=== PATIENT | male | born 1985 | race American Indian/Alaskan Native ===

== ENCOUNTER 2020-10-15 09:32 | Emergency (ER) | payer MEDICARE ==
[2020-10-15 09:46] VITALS: BP 126/87
[2020-10-15] MEDS ORDERED: ACETAMINOPHEN 500 MG TAB PO STA (10:55)
--- NOTE | 2020-10-15 11:00 | Emergency Department Report ---
ED General Adult HPI - General Chief complaint: Extremity Injury, Lower Stated complaint: LT LEG PAIN Time Seen by Provider: 10/15/20 10:21 Source: patient Mode of arrival: Ambulatory Limitations: No Limitations - History of Present Illness Initial comments: 35-year-old -[place] male patient presents with complaints of left lower leg pain starting yesterday. Patient states there is redness and swelling in the area. He denies any history of DVT/PE, recent long travel/surgeries, hemoptysis/cough, shortness of breath, or history of cancer. Patient rates his current pain as a 5/10 in severity and denies trying any OTC medications for symptoms. No difficulty moving the leg per patient. He denies any past medical history - Related Data Previous Rx's Medication Instructions Recorded Last Taken Type Ibuprofen [Motrin] 800 mg PO Q8HR PRN #30 tablet 04/01/16 Unknown Rx cephALEXin [Keflex] 500 mg PO BID #14 capsule 04/01/16 Unknown Rx Ibuprofen [Motrin 800 MG tab] 800 mg PO Q8HR PRN #20 tablet 10/15/20 Unknown Rx Mupirocin [Bactroban 2% OINT] 1 applic TP TID 10 Days #1 tube 10/15/20 Unknown Rx Sulfamethoxazole/Trimethoprim 1 each PO BID 7 Days #14 tablet 10/15/20 Unknown Rx [Bactrim DS TAB] Allergies Allergy/AdvReac Type Severity Reaction Status Date / Time No Known Allergies Allergy Verified 10/15/20 09:43 ED Review of Systems ROS: Stated complaint: LT LEG PAIN Other details as noted in HPI Constitutional: denies: chills, fever Musculoskeletal: other Skin: change in color Neurological: denies: numbness, paresthesias, abnormal gait Hematological/Lymphatic: denies: easy bleeding ED Past Medical Hx - Past Medical History Previous Medical History?: No - Surgical History Past Surgical History?: No - Social History Smoking Status: Never Smoker Substance Use Type: Alcohol - Medications Home Medications: Home Medications Medication Instructions Recorded Confirmed Last Taken Type Ibuprofen [Motrin] 800 mg PO Q8HR PRN #30 tablet 04/01/16 Unknown Rx cephALEXin [Keflex] 500 mg PO BID #14 capsule 04/01/16 Unknown Rx Ibuprofen [Motrin 800 MG tab] 800 mg PO Q8HR PRN #20 tablet 10/15/20 Unknown Rx Mupirocin [Bactroban 2% OINT] 1 applic TP TID 10 Days #1 tube 10/15/20 Unknown Rx Sulfamethoxazole/Trimethoprim 1 each PO BID 7 Days #14 tablet 10/15/20 Unknown Rx [Bactrim DS TAB] ED Physical Exam - General Limitations: No Limitations General appearance: alert, in no apparent distress - Head Head exam: Present: atraumatic, normocephalic - Eye Eye exam: Present: normal appearance - Respiratory Respiratory exam: Absent: respiratory distress - Cardiovascular Cardiovascular Exam: Present: regular rate, normal rhythm - Extremities Exam Extremities exam: Present: full ROM, other (2 cm round area of erythema noted to left medial calf with tenderness to palpation; surrounding varicose veins noted; normal range of motion and sensation of the leg noted; normal pedal pulse noted) - Neurological Exam Neurological exam: Present: alert, oriented X3 - Psychiatric Psychiatric exam: Present: normal affect, normal mood - Skin Skin exam: Present: warm, dry, intact. Absent: rash, cyanosis, diaphoretic, pallor, ecchymosis ED Course Vital Signs 10/15/20 10/15/20 09:45 11:49 Temperature 97.9 F Pulse Rate 70 Respiratory 18 16 Rate Blood Pressure 126/87 O2 Sat by Pulse 99 Oximetry ED Medical Decision Making - Radiology Data Radiology results: report reviewed Left lower extremity Doppler venous ultrasound INDICATION: Pain and swelling FINDINGS: The left common femoral vein, superficial femoral vein and popliteal vein have normal compressibility and phasic flow. An area swelling there is a small hypoechoic areas. No definite flow is seen on the images provided IMPRESSION: 1. No evidence for DVT. 2. Hyperechoic areas in the subcutaneous fat soft tissues. No definite flow signal images provided however findings could represent varicose veins, nonspecific. - Medical Decision Making 35-year-old -[place] male patient presents with complaints of left lower leg pain starting yesterday. Patient states there is redness and swelling in the area. He denies any history of DVT/PE, recent long travel/surgeries, hemoptysis/cough, shortness of breath, or history of cancer. Patient rates his current pain as a 5/10 in severity and denies trying any OTC medications for symptoms. No difficulty moving the leg per patient. He denies any past medical history Round area of erythema and tenderness to palpation noted on exam. Ultrasound is negative for any DVT, however shows a small hypoechoic area. Will cover for infection with Bactrim and mupirocin. Recommend follow-up with primary care doctor in 3 days. Discussed signs and symptoms that should prompt immediate return to the emergency department in detail with patient who verbalized understanding. His vitals are within normal limits, he is well-appearing, he is stable for discharge home. Critical care attestation.: If time is entered above; I have spent that time in minutes in the direct care of this critically ill patient, excluding procedure time. ED Disposition Clinical Impression: Left leg pain Disposition: DC- TO HOME OR SELFCARE Is pt being admited?: No Condition: Stable Instructions: Cellulitis, Adult Prescriptions: Sulfamethoxazole/Trimethoprim [Bactrim DS TAB] 1 each PO BID 7 Days #14 tablet Mupirocin [Bactroban 2% OINT] 1 applic TP TID 10 Days #1 tube Ibuprofen [Motrin 800 MG tab] 800 mg PO Q8HR PRN #20 tablet PRN Reason: Pain Referrals: PRIMARY CARE, [Primary Care Provider] - 3-5 Days [facility] [Provider Group] - 3-5 Days Forms: Work/School Release Form(ED)
--- NOTE | 2020-10-15 11:56 | Vascular Lab Report ---
Left lower extremity Doppler venous ultrasound INDICATION: Pain and swelling FINDINGS: The left common femoral vein, superficial femoral vein and popliteal vein have normal compr essibility and phasic flow. An area swelling there is a small hypoechoic areas. No definite flow is s een on the images provided IMPRESSION: 1. No evidence for DVT. 2. Hyperechoic areas in the subcutaneous fat soft tissues. No definite flow signal images provided ho wever findings could represent varicose veins, nonspecific. Signer Name: Wojciech Smith MD Signed: 10/15/2020 11:51 AM Workstation Name: [id number]
[2020-10-15] MEDS ORDERED: IBUPROFEN 800 MG TAB PO STA (12:00)
== END 2020-10-15 12:26 | disposition home or self-care (01) ==
LOC: ED 09:32
DX: M79.605 Pain in left leg (principal); M79.89 Other specified soft tissue disorders; Z79.1 Long term (current) use of non-steroidal anti-inflammatories (NSAID); Z79.899 Other long term (current) drug therapy

== ENCOUNTER 2020-11-25 08:06 | Emergency (ER) | payer MEDICARE ==
[2020-11-25 08:12] VITALS: BP 128/68
--- NOTE | 2020-11-25 09:18 | Emergency Department Report ---
ED Eye Problem HPI - General Chief complaint: Eye Problems Stated complaint: RIGHT EYE PAIN Time Seen by Provider: 11/25/20 09:12 Source: patient Mode of arrival: Ambulatory Limitations: No Limitations - History of Present Illness Initial comments: 35-year-old -Filipino male presents to the emergency room complaining of right discomfort and redness. Patient states that the eye itches and he wakes up in the morning with Nadira crusty eyelashes and discharge from the eye. Patient denies any blurred vision no change of vision no head injury no eye injury no concerns for foreign body in the eye. Denies any photophobia no decrease in vision. chief complaint: eye redness Onset/Timin -: days(s) Location: right eye If Injury: none Eye Symptoms: redness, pain (Discomfort), discharge Severity scale (0 -10): 7 Consistency: constant Context: recent uri (Seasonal allergies) Associated Symptoms: none Treatments Prior to Arrival: OTC eye drops - Related Data Patient Tetanus UTD: Yes Previous Rx's Medication Instructions Recorded Last Taken Type Ibuprofen [Motrin] 800 mg PO Q8HR PRN #30 tablet 04/01/16 Unknown Rx cephALEXin [Keflex] 500 mg PO BID #14 capsule 04/01/16 Unknown Rx Ibuprofen [Motrin 800 MG tab] 800 mg PO Q8HR PRN #20 tablet 10/15/20 Unknown Rx Mupirocin [Bactroban 2% OINT] 1 applic TP TID 10 Days #1 tube 10/15/20 Unknown Rx Sulfamethoxazole/Trimethoprim 1 each PO BID 7 Days #14 tablet 10/15/20 Unknown Rx [Bactrim DS TAB] Erythromycin [Erythromycin Ophth 1 strip OD QID 10 Days #1 tube 11/25/20 Unknown Rx Oint] Ketotifen Fumarate [Eye Itch 1 drop OD QDAY #1 bottle 11/25/20 Unknown Rx Relief] Allergies Allergy/AdvReac Type Severity Reaction Status Date / Time No Known Allergies Allergy Verified 11/25/20 08:09 ED Review of Systems ROS: Stated complaint: RIGHT EYE PAIN Other details as noted in HPI Comment: All other systems reviewed and negative ED Past Medical Hx - Past Medical History Previous Medical History?: No - Surgical History Past Surgical History?: No - Social History Smoking Status: Never Smoker Substance Use Type: Alcohol - Medications Home Medications: Home Medications Medication Instructions Recorded Confirmed Last Taken Type Ibuprofen [Motrin] 800 mg PO Q8HR PRN #30 tablet 04/01/16 Unknown Rx cephALEXin [Keflex] 500 mg PO BID #14 capsule 04/01/16 Unknown Rx Ibuprofen [Motrin 800 MG tab] 800 mg PO Q8HR PRN #20 tablet 10/15/20 Unknown Rx Mupirocin [Bactroban 2% OINT] 1 applic TP TID 10 Days #1 tube 10/15/20 Unknown Rx Sulfamethoxazole/Trimethoprim 1 each PO BID 7 Days #14 tablet 10/15/20 Unknown Rx [Bactrim DS TAB] Erythromycin [Erythromycin Ophth 1 strip OD QID 10 Days #1 tube 11/25/20 Unknown Rx Oint] Ketotifen Fumarate [Eye Itch 1 drop OD QDAY #1 bottle 11/25/20 Unknown Rx Relief] ED Physical Exam - General Limitations: No Limitations General appearance: alert, in no apparent distress - Head Head exam: Present: atraumatic, normocephalic - Eye Eye exam: Present: PERRL, EOMI, conjunctival injection. Absent: scleral icterus, nystagmus, periorbital swelling, periorbital tenderness - ENT ENT exam: Present: mucous membranes moist, other (Playing on his phone) - Neck Neck exam: Present: normal inspection, full ROM - Respiratory Respiratory exam: Absent: accessory muscle use - Cardiovascular Cardiovascular Exam: Present: regular rate - Extremities Exam Extremities exam: Present: normal inspection, full ROM - Back Exam Back exam: Present: normal inspection, full ROM - Neurological Exam Neurological exam: Present: alert, oriented X3, normal gait - Psychiatric Psychiatric exam: Present: normal affect, normal mood - Skin Skin exam: Present: warm, dry, intact, normal color. Absent: rash ED Course Vital Signs 11/25/20 08:10 Temperature 98.3 F Pulse Rate 69 Respiratory 18 Rate Blood Pressure 128/68 O2 Sat by Pulse 99 Oximetry ED Medical Decision Making - Medical Decision Making 35-year-old -Filipino male presents to the emergency room complaining of right discomfort and redness. Patient states that the eye itches and he wakes up in the morning with Nadira crusty eyelashes and discharge from the eye. Patient denies any blurred vision no change of vision no head injury no eye injury no concerns for foreign body in the eye. Denies any photophobia no decrease in vision. Patient be placed on erythromycin and Zaditor drops. Discussed the patient is most likely from allergies considering he has matted crusty eyelashes in the morning and crusty yellow discharge. Patient is also referred to a primary care provider. Critical care attestation.: If time is entered above; I have spent that time in minutes in the direct care of this critically ill patient, excluding procedure time. ED Disposition Clinical Impression: Conjunctivitis, right eye Qualifiers: Conjunctivitis type: acute Acute conjunctivitis type: unspecified Qualified Code(s): H10.31 - Unspecified acute conjunctivitis, right eye Disposition: TO HOME OR SELFCARE Is pt being admited?: No Does the pt Need Aspirin: No Condition: Stable Instructions: How to Use Eye Drops and Eye Ointments Additional Instructions: Please use medication as prescribed. Follow-up with a primary care provider as well as a medical donation professional for any further concerns. Prescriptions: Erythromycin [Erythromycin Ophth Oint] 1 strip OD QID 10 Days #1 tube Ketotifen Fumarate [Eye Itch Relief] 1 drop OD QDAY #1 bottle Referrals: JANIS FLORES MD [Staff Physician] - 3-5 Days NICK CABRERA MD [Staff Physician] - 3-5 Days AGUSTIN CARTER MD [Staff Physician] - 3-5 Days Forms: Work/School Release Form(ED) Time of Disposition: 09:16
== END 2020-11-25 09:20 | disposition home or self-care (01) ==
LOC: ED 08:06
DX: H10.9 Unspecified conjunctivitis (principal); Z79.899 Other long term (current) drug therapy
CPT/HCPCS: 99282

== ENCOUNTER 2020-12-23 11:07 | Emergency (ER) | payer MEDICARE ==
[2020-12-23 12:01] VITALS: BP 122/68
--- NOTE | 2020-12-23 13:56 | Emergency Department Report ---
Chief Complaint: Urogenital-Male Stated Complaint: TESTICLE PAIN/LEFT LEG PAIN Time Seen by Provider: 12/23/20 13:50 - HPI History of Present Illness: Patient is a 35-year-old male presents emergency room with complaints of skin irritation to the left side of the scrotum that began couple days ago. He reports that it "almost feels like when you have jock itch and there is a tingling/irritation." He denies any pain or swelling in the testicles. He denies any abdominal pain, fever, nausea, vomiting, diarrhea, penile discharge, dysuria, urinary retention, hematuria. He reports that he is sexually active. Vitals are normal On exam: Non toxic appearing, no acute distress atraumatic, normocephalic normal appearance of the eyes, EOMI, no periorbital edema or ecchymosis moist mucus membranes No respiratory distress, no accessory muscle use A&O x4, normal gait exam chaperoned by alexandra Green there is a 1 cm shallow ulceration present to the left scrotal skin, no scrotal edema, no erythema, no increased warmth, no drainage, no testicular tenderness palpation or edema, no edema or tenderness palpation to the epididymal appendages, no obvious lesions on the penile shaft, no obvious penile discharge at the urethra, normal testicular lie, no high rid ing of the testicle, normal cremasteric reflex Examination shows evidence of one shallow scrotal ulceration without any other signs of blistering There is no tenderness palpation of the genitals Patient is not having any urinary symptoms or penile discharge No signs of cellulitis or abscess No signs of testicular torsion No signs of hernia Advised patient Please follow-up with the clinic or health department or to receive a full STD panel including but not limited to syphilis, HIV, herpes. May use Lotrimin ointment [id number] to help with irritation. Please have any partners tested and treated as well. Avoid Septra intercourse. Return to emergency room for any new or worsening symptoms. Discuss strict return precautions Medical screening examination performed there is no threat to life or limb at this time - Exam Vital Signs: Vital Signs 12/23/20 12:00 Temperature 98.2 F Pulse Rate 66 Respiratory 18 Rate Blood Pressure 122/68 O2 Sat by Pulse 99 Oximetry MSE screening note: Focused history and physical exam performed. ED Disposition for MSE Clinical Impression: Scrotal ulcer Disposition: 01 HOME / SELF CARE / HOMELESS Is pt being admited?: No Does the pt Need Aspirin: No Condition: Stable Additional Instructions: Please follow-up with the clinic or health department or to receive a full STD panel including but not limited to syphilis, HIV, herpes. May use Lotrimin ointment [id number] to help with irritation. Please have any partners tested and treated as well. Avoid Septra intercourse. Return to emergency room for any new or worsening symptoms. walk in clinic: [facility] Address: [address] [place] [id number] [facility] - [facility]-3 Days Time of Disposition: 13:59 Print Language: GEORGIAN
== END 2020-12-23 14:15 | disposition home or self-care (01) ==
LOC: ED 11:07
DX: N50.89 Other specified disorders of the male genital organs (principal)
CPT/HCPCS: 99281

== ENCOUNTER 2020-12-30 04:27 | Emergency (ER) | payer MEDICARE ==
[2020-12-30 06:21] LABS: Bilirubin,Urine NEG (Negative); Blood,Urine NEG (Negative); Color,Urine Yellow (Yellow); Mucus,Urine FEW /HPF; Protein,Urine <15 mg/dL mg/dL (Negative); Urobilinogen,Urine < 2.0 mg/dL (<2.0)
[2020-12-30] MEDS ORDERED: AZITHROMYCIN 250 MG TAB PO ONE (10:06)
[2020-12-30] MEDS ORDERED: LIDOCAINE-MPF (1%) 10 MG/1 ML VIAL 5 ML INFILTRATI ONE (10:06)
--- NOTE | 2020-12-30 10:12 | Emergency Department Report ---
ED Male HPI - General Chief complaint: Urogenital-Male Stated complaint: FITCH WHEN VOIDING Time Seen by Provider: 12/30/20 10:05 Source: patient Mode of arrival: Ambulatory Limitations: No Limitations - History of Present Illness Initial comments: CC: "Burning when I pee, I does need some antibiotics to clear it up" HPI: This is a 35 yo male without significant medical history who presents burning with urination. Patient has mild irritation at the tip of penis. No discharge. No rash or lesions. Patient's condom broke during intercourse 2 d ays ago. No previous hx of STI. No know exposure to STI. MD Complaint: other (Dysuria penile irritation) Location: penis Radiation: none Severity: moderate Quality: burning Worsens with: urination - Related Data Previous Rx's Medication Instructions Recorded Last Taken Type Ibuprofen [Motrin] 800 mg PO Q8HR PRN #30 tablet 04/01/16 Unknown Rx cephALEXin [Keflex] 500 mg PO BID #14 capsule 04/01/16 Unknown Rx Ibuprofen [Motrin 800 MG tab] 800 mg PO Q8HR PRN #20 tablet 10/15/20 Unknown Rx Mupirocin [Bactroban 2% OINT] 1 applic TP TID 10 Days #1 tube 10/15/20 Unknown Rx Sulfamethoxazole/Trimethoprim 1 each PO BID 7 Days #14 tablet 10/15/20 Unknown Rx [Bactrim DS TAB] Erythromycin [Erythromycin Ophth 1 strip OD QID 10 Days #1 tube 11/25/20 Unknown Rx Oint] Ketotifen Fumarate [Eye Itch 1 drop OD QDAY #1 bottle 11/25/20 Unknown Rx Relief] Allergies Allergy/AdvReac Type Severity Reaction Status Date / Time No Known Allergies Allergy Verified 12/30/20 06:03 ED Review of Systems ROS: Stated complaint: FITCH WHEN VOIDING Other details as noted in HPI Constitutional: denies: fever, malaise ENT: denies: throat pain Respiratory: denies: cough, shortness of breath Gastrointestinal: denies: abdominal pain, nausea, vomiting Genitourinary: dysuria. denies: discharge Musculoskeletal: denies: back pain ED Past Medical Hx - Past Medical History Previous Medical History?: No - Surgical History Past Surgical History?: No - Social History Smoking Status: Never Smoker Substance Use Type: None - Medications Home Medications: Home Medications Medication Instructions Recorded Confirmed Last Taken Type Ibuprofen [Motrin] 800 mg PO Q8HR PRN #30 tablet 04/01/16 Unknown Rx cephALEXin [Keflex] 500 mg PO BID #14 capsule 04/01/16 Unknown Rx Ibuprofen [Motrin 800 MG tab] 800 mg PO Q8HR PRN #20 tablet 10/15/20 Unknown Rx Mupirocin [Bactroban 2% OINT] 1 applic TP TID 10 Days #1 tube 10/15/20 Unknown Rx Sulfamethoxazole/Trimethoprim 1 each PO BID 7 Days #14 tablet 10/15/20 Unknown Rx [Bactrim DS TAB] Erythromycin [Erythromycin Ophth 1 strip OD QID 10 Days #1 tube 11/25/20 Unknown Rx Oint] Ketotifen Fumarate [Eye Itch 1 drop OD QDAY #1 bottle 11/25/20 Unknown Rx Relief] ED Physical Exam - General Limitations: No Limitations General appearance: alert, in no apparent distress, other (Well-appearing comfortable no acute distress) - Head Head exam: Present: atraumatic, normocephalic - Eye Eye exam: Present: normal appearance - ENT ENT exam: Present: mucous membranes moist - Neck Neck exam: Present: normal inspection - Respiratory Respiratory exam: Present: normal lung sounds bilaterally. Absent: respiratory distress - Cardiovascular Cardiovascular Exam: Present: regular rate, normal rhythm. Absent: systolic murmur, diastolic murmur, rubs, gallop - GI/Abdominal GI/Abdominal exam: Present: soft, normal bowel sounds - Rectal Rectal exam: Present: deferred - exam: Present: other (Deferred due to patient's discretion) - Extremities Exam Extremities exam: Present: normal inspection - Back Exam Back exam: Present: normal inspection - Neurological Exam Neurological exam: Present: alert, oriented X3 - Psychiatric Psychiatric exam: Present: normal affect, normal mood - Skin Skin exam: Present: warm, dry, intact, normal color. Absent: rash ED Course Vital Signs 12/30/20 06:02 Temperature 98.1 F Pulse Rate 65 Respiratory 18 Rate Blood Pressure 133/69 [Left] O2 Sat by Pulse 96 Oximetry ED Medical Decision Making - Medical Decision Making Urethritis: Urinalysis negative for infection, patient denies rash balanitis not likely. Patient received ceftriaxone 500 mg IM and 1 g p.o. azithromycin in the emergency department discharged home. Recommended outpatient STI testing. Critical care attestation.: If time is entered above; I have spent that time in minutes in the direct care of this critically ill patient, excluding procedure time. ED Disposition Clinical Impression: Urethritis Disposition: 01 HOME / SELF CARE / HOMELESS Is pt being admited?: No Does the pt Need Aspirin: No Condition: Stable Instructions: Urethritis, Adult Referrals: JANIS FLORES MD [Staff Physician] - 3-5 Days Forms: STI Treatment and Prevention
[2020-12-30 11:07] VITALS: BP 160/80
== END 2020-12-30 11:05 | disposition home or self-care (01) ==
LOC: ED 04:27
DX: N34.2 Other urethritis (principal)
CPT/HCPCS: 81001; 96372; 99283; J0696

== ENCOUNTER 2021-01-17 13:17 | Emergency (ER) | payer OTHER, MEDICARE ==
[2021-01-17] MEDS ORDERED: IBUPROFEN 800 MG TAB PO ONE (13:40)
[2021-01-17 13:56] VITALS: BP 124/82
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
== END 2021-01-17 14:41 | disposition home or self-care (01) ==
LOC: ED 13:17
DX: S39.92XA Unspecified injury of lower back, initial encounter (principal); Z72.89 Other problems related to lifestyle; Z79.899 Other long term (current) drug therapy; V89.2XXA Person injured in unspecified motor-vehicle accident, traffic, initial encounter; Y93.89 Activity, other specified; Y92.488 Other paved roadways as the place of occurrence of the external cause; Y99.8 Other external cause status
CPT/HCPCS: 72100; 99283

== ENCOUNTER 2021-07-18 14:00 | Emergency (ER) | payer MEDICARE ==
[2021-07-18 14:33] VITALS: BP 128/74
== END 2021-07-18 15:30 | disposition admitted as inpatient to this hospital (09) ==
LOC: ED 14:00
DX: M25.579 Pain in unspecified ankle and joints of unspecified foot (principal); Z53.21 Procedure and treatment not carried out due to patient leaving prior to being seen by health care provider